=== PATIENT | male | born 1945 | race African-American/Black ===

== ENCOUNTER 2016-12-07 06:31 | Emergency (ER) | payer MEDICARE, OTHER | END 2016-12-07 08:34 | disposition home or self-care (01) | LOC: FER 06:31 | DX: S01.81XA Laceration without foreign body of other part of head, initial encounter (principal); I10 Essential (primary) hypertension; Z85.79 Personal history of other malignant neoplasms of lymphoid, hematopoietic and related tissues; Z90.49 Acquired absence of other specified parts of digestive tract; Z87.442 Personal history of urinary calculi; Z79.82 Long term (current) use of aspirin; Z79.899 Other long term (current) drug therapy; Z23 Encounter for immunization; W10.9XXA Fall (on) (from) unspecified stairs and steps, initial encounter; Y92.009 Unspecified place in unspecified non-institutional (private) residence as the place of occurrence of the external cause | CPT/HCPCS: 70450; 90471; 90715 ==

== ENCOUNTER → 2020-11-12 | Day surgery (SDC) | payer MEDICARE, OTHER ==
[~2020-11-12] MED LIST: 8 HOUR650 MG PO; ACYCLOVIR400 MG PO; ASPIRIN CHEWABL81 MG PO; ATORVASTATIN CA80 MG PO; AUGMENTIN250 MG PO; BENADRYL IV; BETAPACE80 MG PO; CLOPIDOGREL75 MG PO; COLACE100 MG PO; CYCLOPHOSPHAMID50 MG PO; DARATUMUMAB IV; DARATUMUMAB PO; DEXAMETHASONE4 MG PO; FERREX 150150 MG PO; GLIMEPIRIDE1 MG PO; LASIX40 MG PO; LEVOTHYROXINE75 MC1 PO; LIPITOR40 MG PO; LOPRESSOR25 MG PO; MAG-OXIDE 400M400 MG PO; NORCO 5-325 TA1 EACH PO; OXY-IR 5MG5 MG PO; PANTOPRAZOLE SO40 MG PO; PEPCID AC20 MG PO; PERCOCET 10-321 EACH PO; PERCOCET 5-3251 EACH PO; POLY-IRON150 MG PO; SOLU-MEDRO125 MG/2 M IV; SOLU-MEDROL500 MG IV; TAMIFLU 75MG CA75 MG PO; TAMSULOSIN HCL0.4 MG PO; TRULICITY0.75 MG/0. IJ; TRULICITY1.5 MG/0.5 IJ; VITAMIN B-121000 MC1 PO; VITAMIN D1000 UNIT PO
== END | disposition home or self-care (01) ==
LOC: FAS 06:12
DX: M75.112 Incomplete rotator cuff tear or rupture of left shoulder, not specified as traumatic (principal); M75.42 Impingement syndrome of left shoulder; M19.012 Primary osteoarthritis, left shoulder; M75.52 Bursitis of left shoulder; I10 Essential (primary) hypertension; E03.9 Hypothyroidism, unspecified; K21.9 Gastro-esophageal reflux disease without esophagitis; Z20.822 Contact with and (suspected) exposure to COVID-19; Z96.641 Presence of right artificial hip joint; Z90.49 Acquired absence of other specified parts of digestive tract; Z96.652 Presence of left artificial knee joint; Z98.890 Other specified postprocedural states; Z79.899 Other long term (current) drug therapy
CPT/HCPCS: 71045; 82962; 93005; J0171; J0690; J0735; J1100; J1885; J2250; J2370; J2405; J2704; J2795; J7120

== ENCOUNTER 2020-12-20 18:07 | Inpatient (IN) | payer MEDICARE, OTHER ==
[~2020-12-20] VITALS: Ht 167.6 cm; Wt 112.0 kg
[~2020-12-20 18:07] MED LIST changes: -BETAPACE80 MG PO; -DARATUMUMAB PO; -PERCOCET 10-321 EACH PO; -SOLU-MEDRO125 MG/2 M IV; -TRULICITY0.75 MG/0. IJ
[2020-12-20 18:37] LABS: BASOPHIL 0.3 % (0-2); EOSINOPHIL 0.1 % (0-7); HCT 31.7 % (42.0-52.0); HGB 10.3 g/dl (13.2-18.0); LYMPHOCYTE 26.2 % (15-48); MCH 29.2 pg (25.0-31.0); MCHC 32.5 g/dL (32.0-36.0); MCV 89.8 fL (78.0-100.0); MONOCYTE 5.4 % (0-12); MPV 10.2 fL (6.0-9.5); NEUTROPHIL 67.1 % (41-80); NRBC 0.3; PLT 219 K/uL (150-400); RBC 3.53 M/uL (4.70-6.00); RDW 16.2 % (11.5-14.0); WBC 9.3 K/uL (4.0-10.5)
[2020-12-20 19:04] LABS: BILIRUBIN - TOTAL 0.3 mg/dL (0.2-1.0); BUN/CREAT RATIO (CALC) 10.8 RATIO; CREATININE 1.67 mg/dL (0.67-1.17); GLOBULIN (CALCULATION) 2.8 g/dL; POTASSIUM 3.1 mmol/L (3.5-5.1); TOTAL PROTEIN 5.8 g/dL (6.4-8.2)
[2020-12-20 19:37] LABS: INR 1.22 (0.9-1.2); PROTHROMBIN TIME 14.6 SECONDS (11.4-13.6); PTT 24.3 SECONDS (22.2-34.7)
[2020-12-20 19:42] LABS: CPK 136 U/L (39-308); LIPASE 119 U/L (73-393)
[2020-12-20 19:47] LABS: LACTIC ACID 3.4 mmol/L (0.4-1.9)
[2020-12-20] MEDS ORDERED: TRULICITY0.75 MG/0. IJ (22:49)
[2020-12-20] MEDS ORDERED: SOLU-MEDRO125 MG/2 M IV (22:51)
[2020-12-20] MEDS ORDERED: PERCOCET 10-321 EACH PO (22:53)
[2020-12-20] MEDS ORDERED: DARATUMUMAB PO (22:58)
[2020-12-21 04:48] LABS: BASOPHIL 0.2 % (0-2); EOSINOPHIL 0.4 % (0-7); HGB 8.9 g/dl (13.2-18.0); LYMPHOCYTE 20.3 % (15-48); MCH 29.1 pg (25.0-31.0); MCHC 31.8 g/dL (32.0-36.0); MCV 91.5 fL (78.0-100.0); MONOCYTE 9.6 % (0-12); MPV 9.6 fL (6.0-9.5); NRBC 0.3; PLT 186 K/uL (150-400); RBC 3.06 M/uL (4.70-6.00); RDW 16.6 % (11.5-14.0); WBC 10.1 K/uL (4.0-10.5)
[2020-12-21 04:53] LABS: NEUTROPHIL 68.7 % (41-80)
[2020-12-21 05:15] LABS: BUN/CREAT RATIO (CALC) 11.8 RATIO; CREATININE 1.61 mg/dL (0.67-1.17); MAGNESIUM 1.6 mg/dL (1.8-2.4); POTASSIUM 3.4 mmol/L (3.5-5.1)
[2020-12-21 13:55] LABS: RETICULOCYTE COUNT 2.8 % (1.0-2.0)
[2020-12-21 14:13] LABS: IRON % SATURATION 4.1 %SAT (20-50)
[2020-12-21 14:42] LABS: FOLIC ACID (SERUM) 6.8 ng/mL (8.6-58.9)
--- NOTE | 2020-12-21 15:34 | NUR ---
12/21/20 Mr. Bernal lives with his spouse. He was independent in the home and community prior to admission. He does not use any DME. Pt is currently on 02. Please advised in home 02 is needed.
[2020-12-21 19:42] LABS: BILIRUBIN NEGATIVE (NEGATIVE); BLOOD NEGATIVE Ery/uL (NEGATIVE); CLARITY CLEAR (CLEAR); COLOR YELLOW (YELLOW); GLUCOSE (U) NORMAL (NORMAL); LEUKOCYTES NEGATIVE Leu/uL (NEGATIVE); NITRITE NEGATIVE (NEGATIVE); PROTEIN TRACE (LOW) mg/dL (NEGATIVE); SPECIFIC GRAVITY 1.025 (1.001-1.030); UROBILINOGEN 0.2 mg/dL (0.2-1.0)
[2020-12-21 19:56] LABS: AMORPHOUS URATES CRYSTALS LARGE; BACTERIA 3+; SQUAMOUS EPITHELIAL CELLS >50
[2020-12-22 04:05] LABS: BASOPHIL 0.1 % (0-2); HCT 25.2 % (42.0-52.0); HGB 8.1 g/dl (13.2-18.0); LYMPHOCYTE 26.3 % (15-48); MCH 28.8 pg (25.0-31.0); MCHC 32.1 g/dL (32.0-36.0); MCV 89.7 fL (78.0-100.0); MONOCYTE 8.6 % (0-12); MPV 9.7 fL (6.0-9.5); NEUTROPHIL 63.2 % (41-80); NRBC 0; PLT 167 K/uL (150-400); RBC 2.81 M/uL (4.70-6.00); RDW 16.1 % (11.5-14.0); WBC 8.4 K/uL (4.0-10.5)
[2020-12-22 04:22] LABS: BUN/CREAT RATIO (CALC) 9.4 RATIO; CREATININE 1.6 mg/dL (0.67-1.17); MAGNESIUM 1.8 mg/dL (1.8-2.4); POTASSIUM 3.4 mmol/L (3.5-5.1)
[2020-12-22 04:32] LABS: PRO-BNP 249 pg/mL (<125)
[2020-12-23 06:52] LABS: BASOPHIL 0.3 % (0-2); EOSINOPHIL 1.1 % (0-7); HCT 26.2 % (42.0-52.0); HGB 8.2 g/dl (13.2-18.0); LYMPHOCYTE 27.7 % (15-48); MCH 28.8 pg (25.0-31.0); MCHC 31.3 g/dL (32.0-36.0); MCV 91.9 fL (78.0-100.0); MONOCYTE 8.5 % (0-12); MPV 10.2 fL (6.0-9.5); NEUTROPHIL 61.3 % (41-80); NRBC 0; PLT 179 K/uL (150-400); RBC 2.85 M/uL (4.70-6.00); RDW 16.1 % (11.5-14.0)
[2020-12-23 07:12] LABS: BUN/CREAT RATIO (CALC) 6.8 RATIO; CREATININE 1.48 mg/dL (0.67-1.17); MAGNESIUM 1.7 mg/dL (1.8-2.4); PHOSPHORUS 2.7 mg/dL (2.6-4.7); POTASSIUM 3.7 mmol/L (3.5-5.1)
[2020-12-24 06:12] LABS: BASOPHIL 0.4 % (0-2); EOSINOPHIL 0.8 % (0-7); HCT 30.3 % (42.0-52.0); HGB 9.9 g/dl (13.2-18.0); LYMPHOCYTE 28.1 % (15-48); MCH 29.7 pg (25.0-31.0); MCHC 32.7 g/dL (32.0-36.0); MPV 10.2 fL (6.0-9.5); NEUTROPHIL 56.9 % (41-80); NRBC 0.3; PLT 189 K/uL (150-400); RBC 3.33 M/uL (4.70-6.00); WBC 7.8 K/uL (4.0-10.5)
[2020-12-24 07:09] LABS: BUN/CREAT RATIO (CALC) 6.6 RATIO; CREATININE 1.37 mg/dL (0.67-1.17); POTASSIUM 3.8 mmol/L (3.5-5.1)
[2020-12-24] MEDS ORDERED: BETAPACE80 MG PO (12:10)
--- NOTE | 2020-12-25 13:10 | NUR ---
Patient was discharged home on 12/24/20. Home 02 was not required.
== END 2020-12-24 13:10 | disposition home or self-care (01) | DRG 309 ==
LOC: FER 18:07 → FTCU 21:53
PROVIDERS: Emergency Medicine; Emergency Medicine Emergency Medical Services; Hospitalist; Internal Medicine; Internal Medicine Cardiovascular Disease; ADMIT Allergy & Immunology Allergy
PROC: 30233N1 Transfusion of Nonautologous Red Blood Cells into Peripheral Vein, Percutaneous Approach (ICD-10-PCS; principal; 2020-12-23)
DX: I48.0 Paroxysmal atrial fibrillation (principal); C90.00 Multiple myeloma not having achieved remission; E87.0 Hyperosmolality and hypernatremia; I25.110 Atherosclerotic heart disease of native coronary artery with unstable angina pectoris; E87.2 Acidosis; E11.9 Type 2 diabetes mellitus without complications; E78.5 Hyperlipidemia, unspecified; I12.9 Hypertensive chronic kidney disease with stage 1 through stage 4 chronic kidney disease, or unspecified chronic kidney disease; N18.30 Chronic kidney disease, stage 3 unspecified; Z20.822 Contact with and (suspected) exposure to COVID-19; Z96.641 Presence of right artificial hip joint; E86.0 Dehydration; E87.6 Hypokalemia; E83.42 Hypomagnesemia; D63.0 Anemia in neoplastic disease; E03.9 Hypothyroidism, unspecified; Z87.11 Personal history of peptic ulcer disease; Z87.891 Personal history of nicotine dependence; Z90.89 Acquired absence of other organs; Z95.5 Presence of coronary angioplasty implant and graft; Z87.01 Personal history of pneumonia (recurrent); Z86.19 Personal history of other infectious and parasitic diseases; Z86.11 Personal history of tuberculosis; Z87.442 Personal history of urinary calculi; Z98.890 Other specified postprocedural states; Z79.82 Long term (current) use of aspirin; Z79.84 Long term (current) use of oral hypoglycemic drugs; Z79.02 Long term (current) use of antithrombotics/antiplatelets; Z79.899 Other long term (current) drug therapy
CPT/HCPCS: 36415; 36430; 71045; 80048; 80053; 80061; 81001; 82550; 82607; 82746; 82962; 83540; 83550; 83605; 83690; 83735; 83880; 84100; 84145; 84484; 85025; 85379; 85610; 85730; 86850; 86900; 86901; 86922; 87040; 87088; 93005; 94640; J0610; J1650; J1940; J2405; J2916; J3475; J7030; P9016; Q5106; U0002

== ENCOUNTER 2021-03-14 08:35 | Emergency (ER) | payer MEDICARE, OTHER ==
[~2021-03-14 08:35] MED LIST changes: +BETAPACE80 MG PO; +DARATUMUMAB PO; +PERCOCET 10-321 EACH PO; +SOLU-MEDRO125 MG/2 M IV; +TRULICITY0.75 MG/0. IJ
== END 2021-03-14 11:18 | disposition home or self-care (01) ==
LOC: FER 08:35
DX: M84.411A Pathological fracture, right shoulder, initial encounter for fracture (principal)
CPT/HCPCS: 73000; 73030

== ENCOUNTER 2021-04-29 08:02 | Day surgery (SDC) | payer MEDICARE, OTHER ==
[~2021-04-29] VITALS: Ht 168 cm; Wt 108.0 kg
[~2021-04-29 08:02] MED LIST changes: +DEXAMETHASONE1 MG PO; +FOLIC ACID1 MG PO; +MYRBETRIQ25 MG PO
[2021-04-29] MEDS ORDERED: XGEVA120 MG/1.7 IJ (08:44)
--- NOTE | 2021-04-29 10:51 | NUR ---
CALLED ADILSON AT [facility] AND FAXED FACESHEET INTO HER REQUESTING A ROLLING WALKER. SENT EMAIL INTO NEHA VERGARA AND ASKED IF SHE COULD TAKE FOR HOME HEALTH SHE IS LOOKING INTO AND WILL CALL US BACK AND LET US KNOW FOR SURE
--- NOTE | 2021-04-29 12:39 | NUR ---
PER NEHA VERGARA FROM [facility] THEY CAN TAKE PATIENT; PLEASE NOTIFY HER OF D/C
[2021-04-30 06:20] LABS: BASOPHIL 0 % (0-2); EOSINOPHIL 0.4 % (0-7); HGB 9.9 g/dl (13.2-18.0); LYMPHOCYTE 20.5 % (15-48); MCH 31.2 pg (25.0-31.0); MCV 94.6 fL (78.0-100.0); MONOCYTE 13.4 % (0-12); MPV 10.3 fL (6.0-9.5); NEUTROPHIL 64.2 % (41-80); PLT 97 K/uL (150-400); RBC 3.17 M/uL (4.70-6.00); RDW 17.1 % (11.5-14.0)
[2021-04-30 06:21] LABS: WBC 5.2 K/uL (4.0-10.5)
[2021-04-30 06:51] LABS: BUN/CREAT RATIO (CALC) 18.3 RATIO; CREATININE 1.42 mg/dL (0.67-1.17); POTASSIUM 3.8 mmol/L (3.5-5.1)
[2021-04-30] MEDS ORDERED: ASPIRIN81 MG PO (13:50)
[2021-04-30] MEDS ORDERED: FEOSOL325 MG PO (13:50)
--- NOTE | 2021-04-30 17:03 | NUR ---
04/30/21 Bailey White arranged Outpatient therapy at [facility] Outpatient. The referral to [facility] was canceled. A 3in1 was order from [facility] and will be delieverd to home. The rolling walker ordered by Arielle Loya has been delivered to patient's room.
== END 2021-04-30 15:02 | disposition home or self-care (01) ==
LOC: FMS 08:02 → FAS 08:02 → FMS 11:24 → FAS 14:00
PROVIDERS: Orthopaedic Surgery
DX: M84.552A Pathological fracture in neoplastic disease, left femur, initial encounter for fracture (principal); C90.00 Multiple myeloma not having achieved remission; I12.9 Hypertensive chronic kidney disease with stage 1 through stage 4 chronic kidney disease, or unspecified chronic kidney disease; E11.22 Type 2 diabetes mellitus with diabetic chronic kidney disease; N18.30 Chronic kidney disease, stage 3 unspecified; I48.91 Unspecified atrial fibrillation; E78.5 Hyperlipidemia, unspecified; K21.9 Gastro-esophageal reflux disease without esophagitis; E03.9 Hypothyroidism, unspecified; I25.10 Atherosclerotic heart disease of native coronary artery without angina pectoris; Z95.5 Presence of coronary angioplasty implant and graft; Z79.82 Long term (current) use of aspirin; Z79.02 Long term (current) use of antithrombotics/antiplatelets; Z79.899 Other long term (current) drug therapy
CPT/HCPCS: 36415; 73501; 76000; 80048; 82962; 85025; 94010; 97110; 97163; 97166; 97530-GP; 97535; C1713; J0697; J1170; J2704; J3010; J7120

== ENCOUNTER 2021-05-04 11:34 | Emergency (ER) | payer MEDICARE, OTHER ==
[~2021-05-04 11:34] MED LIST changes: +ASPIRIN81 MG PO; +FEOSOL325 MG PO; +XGEVA120 MG/1.7 IJ
[2021-05-04 12:02] LABS: BASOPHIL 0.2 % (0-2); EOSINOPHIL 0.4 % (0-7); HCT 22.7 % (42.0-52.0); LYMPHOCYTE 45.5 % (15-48); MCH 30.4 pg (25.0-31.0); MCHC 30.8 g/dL (32.0-36.0); MONOCYTE 6.7 % (0-12); MPV 10.4 fL (6.0-9.5); NEUTROPHIL 45.9 % (41-80); NRBC 0; RDW 16.5 % (11.5-14.0); WBC 5.3 K/uL (4.0-10.5)
[2021-05-04 12:07] LABS: MCV 98.7 fL (78.0-100.0); PLT 97 K/uL (150-400)
[2021-05-04 12:14] LABS: INR 1.52 (0.9-1.2); PROTHROMBIN TIME 17.6 SECONDS (11.8-13.4); PTT 34.3 SECONDS (24.4-34.7)
[2021-05-04 12:18] LABS: ALBUMIN 1.9 g/dL (3.4-5.0); BILIRUBIN - TOTAL 0.8 mg/dL (0.2-1.0); BUN/CREAT RATIO (CALC) 19.5 RATIO; CREATININE 1.49 mg/dL (0.67-1.17); GLOBULIN (CALCULATION) 2.2 g/dL; POTASSIUM 4.8 mmol/L (3.5-5.1); TOTAL PROTEIN 4.1 g/dL (6.4-8.2)
[2021-05-04 12:21] LABS: LACTIC ACID 3.9 mmol/L (0.4-1.9)
[2021-05-04 14:01] LABS: BILIRUBIN NEGATIVE (NEGATIVE); BLOOD TRACE-INTACT Ery/uL (NEGATIVE); CLARITY CLEAR (CLEAR); COLOR YELLOW (YELLOW); GLUCOSE (U) NORMAL (NORMAL); LEUKOCYTES NEGATIVE Leu/uL (NEGATIVE); NITRITE NEGATIVE (NEGATIVE); PROTEIN 1+ mg/dL (NEGATIVE); UROBILINOGEN 0.2 mg/dL (0.2-1.0)
[2021-05-04 14:35] LABS: URINARY RBC RARE; URINARY WBC RARE
== END 2021-05-04 14:05 | disposition other institution (70) ==
LOC: FER 11:34
PROVIDERS: Emergency Medicine
DX: K92.0 Hematemesis (principal); D50.0 Iron deficiency anemia secondary to blood loss (chronic); I95.9 Hypotension, unspecified
CPT/HCPCS: 31500; 36415; 36430; 71045; 74018; 80053; 81001; 83605; 83690; 84484; 85025; 85610; 85730; 92950; 96365; 96368; 96375; J2250; J2405; J2550; J7030; P9016